=== PATIENT | male | born 1945 | race Caucasian/White ===

== ENCOUNTER 2020-09-18 05:43 | Inpatient (IN) | payer MEDICARE, OTHER ==
[2020-09-18] VITALS (27 sets, daily range): BP systolic 83–110; BP diastolic 41–97
[~2020-09-18] VITALS: Ht 172.7 cm; Wt 86.2 kg
--- NOTE | 2020-09-18 05:46 | NUR ---
MARYJANE 909 FROM HOME FOR C/O WORSENING LLE PAIN AND SWELLING X 4 DAYS PT HAD A BACK SX AT [facility] ON 07/31/20; PT AAOX2-3, DENIES ANY SOB/CP. NOTED SWELLING ON LLE, PT VSS, NOT IN ACUTE DISTRESS, PENDING ER PROVIDER CASANDRA
--- NOTE | 2020-09-18 06:10 | NUR ---
forensic toxicologist at bed side
[2020-09-18 06:12] LABS: BASOPHILS % (AUTO) 0.2 % (0.0-2.0); EOSINOPHILS % (AUTO) 0.1 % (0.0-6.0); HEMATOCRIT 33 % (39-51); HEMOGLOBIN 10.9 g/dL (13.5-17.5); LYMPHOCYTES # (AUTO) 0.9 /CMM (0.8-4.8); LYMPHOCYTES % (AUTO) 5.7 % (20.0-44.0); MEAN CORPUSCULAR HGB CONC 33 g/dl (31.0-36.0); MEAN CORPUSCULAR VOLUME 91 fL (80-96); MONOCYTES # (AUTO) 0.6 /CMM (0.1-1.30); NEUTROPHILS # (AUTO) 14.1 /CMM (1.8-8.9); PLATELET COUNT (AUTO) 204 /CMM (150-450); RED BLOOD CELL COUNT(AUTO) 3.64 MIL/uL (4.5-6.0); WHITE BLOOD COUNT (AUTO) 15.6 K/uL (4.3-11.0)
[2020-09-18 06:27] LABS: B-TYPE NATRIURETIC PEPTIDE 2330 PG/ML (0-125); CALCIUM, SERUM 7.9 mg/dL (8.5-10.1); CARBON DIOXIDE 19 mmol/L (21-32); CHLORIDE 100 mmol/L (98-107); CREATININE 6.6 mg/dL (0.6-1.3); GLUCOSE 168 mg/dL (74-106); SODIUM SERUM 134 mmol/L (136-145)
[2020-09-18 06:28] LABS: POTASSIUM 6.6 mmol/L (3.5-5.1); UREA NITROGEN, BLOOD 170 mg/dL (7-18)
[2020-09-18] MEDS ORDERED: CALCIUM CHLORIDE 1,000 MG/10 ML DISP.SYRIN ONE (06:39)
[2020-09-18] MEDS ORDERED: SODIUM BICARBONATE SYR 50 MEQ/50 ML DISP.SYRIN ONE (06:39)
[2020-09-18] MEDS ORDERED: LORAZEPAM INJ 2 MG/ML VIAL ONE (06:48)
--- NOTE | 2020-09-18 06:57 | NUR ---
pmd dr flor: [phone]
[2020-09-18 06:59] LABS: ALANINE AMINOTRANSFERASE 65 U/L (12-78); ALBUMIN 1.8 g/dL (3.4-5.0); ALKALINE PHOSPHATASE 128 U/L (46-116); ASPARTATE AMINOTRANSFERASE 53 U/L (15-37); BILIRUBIN,TOTAL 0.4 mg/dL (0.2-1.0); CALCIUM, SERUM 7.9 mg/dL (8.5-10.1); CARBON DIOXIDE 15 mmol/L (21-32); CHLORIDE 99 mmol/L (98-107); CREATININE 6.6 mg/dL (0.6-1.3); GLUCOSE 160 mg/dL (74-106); LIPASE 652 U/L (73-393); SODIUM SERUM 134 mmol/L (136-145)
[2020-09-18] MEDS ORDERED: IV NS 0.9% 1,000 ML BAG IV ONE (07:00)
[2020-09-18] MEDS ORDERED: SODIUM BICARBONATE SYR 50 MEQ/50 ML DISP.SYRIN IV ONE (07:00)
[2020-09-18] MEDS ORDERED: LORAZEPAM INJ 2 MG/ML VIAL IV ONE (07:00)
[2020-09-18] MEDS ORDERED: ALBUTEROL FS 2.5 MG/3 ML VIAL.NEB NEB ONE (07:00)
[2020-09-18] MEDS ORDERED: CALCIUM CHLORIDE 1,000 MG/10 ML DISP.SYRIN IV ONE (07:00)
--- NOTE | 2020-09-18 07:00 | NUR ---
SON STATES PT TAKING TAMSULOSIN FOR BPH; BLADDER SCAN DONE PER ER DOC, >999ML. F/C INSERTED
[2020-09-18] MEDS ORDERED: ALBUTEROL FS 2.5 MG/3 ML VIAL.NEB ONE (07:01)
[2020-09-18 07:06] LABS: BILIRUBIN,URINE NEGATIVE (NEGATIVE); BLOOD, URINE TRACE-INTA Ery/uL (NEGATIVE); COLOR,URINE YELLOW (YELLOW); LEUKOCYTE ESTERASE ,URINE LARGE (NEGATIVE); NITRITE, URINE NEGATIVE (NEGATIVE); PROTEIN,URINE TRACE mg/dl (NEGATIVE); UGLUCOSE NEGATIVE (NEGATIVE); UROBILINOGEN,URINE 0.2 EU/dL (0.2)
[2020-09-18] MEDS ORDERED: MORPHINE SULFATE INJ 2 MG/ML DISP.SYRIN ONE (07:07)
[2020-09-18 07:10] LABS: POTASSIUM 6.5 mmol/L (3.5-5.1); UREA NITROGEN, BLOOD 164 mg/dL (7-18)
[2020-09-18 07:14] LABS: BACTERIA,URINE Many /HPF (None Seen); SQUAMOUS EPITHELIAL CELL,UR Few /HPF (None Seen); WBC,URINE TOO NUMEROUS TO COUN /HPF (0-3)
[2020-09-18] MEDS ORDERED: CIPR500T5 PO (07:23)
[2020-09-18] MEDS ORDERED: ENOX60DI8 SQ (07:23)
[2020-09-18] MEDS ORDERED: CYCL100C23 PO (07:23)
[2020-09-18] MEDS ORDERED: TAMS-12 PO (07:23)
[2020-09-18] MEDS ORDERED: MIRT15TA7 PO (07:23)
[2020-09-18] MEDS ORDERED: GABA300C PO (07:23)
[2020-09-18] MEDS ORDERED: ATEN100T PO (07:23)
[2020-09-18] MEDS ORDERED: CEFTRIAXONE 1GM BAG (ER ONLY) 100 ML IV ONE (07:24)
[2020-09-18] MEDS ORDERED: ACETAMINOPHEN 325 MG TABLET PO PRN (07:30)
[2020-09-18] MEDS ORDERED: LIDOCAINE 2% JEL UROJET 10 ML MM ONE (07:30)
[2020-09-18] MEDS ORDERED: ONDANSETRON HCL/PF 4 MG/2 ML VIAL IVP PRN (07:30)
[2020-09-18] MEDS ORDERED: CEFTRIAXONE 1 G in IV D5W 50 ML IV ONE ×4 (07:30)
[2020-09-18] MEDS ORDERED: MORPHINE SULFATE INJ 2 MG/ML DISP.SYRIN IV ONE (07:30)
[2020-09-18] MEDS ORDERED: MAG HYDROX/AL HYDROX/SIMETH 30 ML UDC PO PRN (07:30)
[2020-09-18] MEDS ORDERED: Z GUARD REMEDY 2 OZ OINT TP PRN (07:30)
[2020-09-18] MEDS ORDERED: MAGNESIUM HYDROXIDE 30 ML UDC PO PRN (07:30)
[2020-09-18] MEDS ORDERED: ENOXAPARIN SODIUM 60 MG/0.6 ML DISP.SYRIN SQ ONE (07:39)
--- NOTE | 2020-09-18 07:48 | NUR ---
PER DR. TEN DOBSON TO CANCEL LOVENOX SINCE DR. HERNANDEZ ORDERED HEPARIN FOR INPATIENT.
--- NOTE | 2020-09-18 07:50 | NUR ---
BED 253 ICU
--- NOTE | 2020-09-18 07:57 | NUR ---
REPORT GIVEN TO PRADEEP DELUCA.
[2020-09-18] MEDS ORDERED: DEXTROSE 50%-WATER 50 ML DISP.SYRIN IV PRN (08:00)
[2020-09-18] MEDS ORDERED: ENOXAPARIN SODIUM 40 MG/0.4 ML DISP.SYRIN SQ ONE (08:00)
[2020-09-18 08:12] LABS: BILIRUBIN,URINE Negative (NEGATIVE); BLOOD, URINE Small Ery/uL (NEGATIVE); COLOR,URINE LIGHT YELLOW (YELLOW); LEUKOCYTE ESTERASE ,URINE Large (NEGATIVE); NITRITE, URINE Negative (NEGATIVE); PROTEIN,URINE 100 mg/dl (NEGATIVE); UGLUCOSE Negative (NEGATIVE); UROBILINOGEN,URINE 0.2 EU/dL (0.2)
[2020-09-18 08:17] LABS: BACTERIA,URINE Moderate /HPF (None Seen); WBC,URINE TOO NUMEROUS TO COUN /HPF (0-3)
[2020-09-18 08:18] LABS: SQUAMOUS EPITHELIAL CELL,UR Few /HPF (None Seen)
[2020-09-18 08:55] LABS: ALANINE AMINOTRANSFERASE 55 U/L (12-78); ALBUMIN 1.7 g/dL (3.4-5.0); ALKALINE PHOSPHATASE 120 U/L (46-116); ASPARTATE AMINOTRANSFERASE 47 U/L (15-37); BILIRUBIN,DIRECT 0.2 mg/dL (0.0-0.2); BILIRUBIN,TOTAL 0.4 mg/dL (0.2-1.0); TOTAL PROTEIN, SERUM 7.7 g/dL (6.4-8.2)
[2020-09-18] MEDS ORDERED: PANTOPRAZOLE 40 MG VIAL IV SCH (09:00)
[2020-09-18] MEDS ORDERED: HEPARIN SODIUM, PORCINE 5000 UNITS/1 ML VIAL SQ SCH (09:00)
--- NOTE | 2020-09-18 09:07 | NUR ---
PATIENT TRANSFERRED TO ICU 253 VIA ACLS PROTOCOL. IN STABLE CONDITION. ENDORSED TO PRADEEP DELUCA.
--- NOTE | 2020-09-18 09:07 | NUR ---
ICU/RN: RECEIVED PT FROM ER. PT ALERT, AWAKE, FOLLOWS COMMANDS. ON ROOM AIR, NO ACUTE DISTRESS NOTED. SINUS ON TELE. LEFT LOWER PITTING EDEMA NOTED, POSITIVE FOR MULTIPLE DVTS. HEPARIN DRIP ORDERED, WAITING FOR ARRIVAL FROM PHARMACY. PT NOTED TO HAVE URINARY RETENTION, ARCE INSERTED IN ER, PURULENT OUTPUT NOTED. ALL NEEDS WILL BE ATTENDED TO, SAFETY MEASURES TAKEN,BED IN LOW POSITION, SIDE RAILS UP, CALL LIGHT WITHIN REACH.
[2020-09-18 09:10] LABS: CALCIUM, SERUM 8.6 mg/dL (8.5-10.1); CARBON DIOXIDE 14 mmol/L (21-32); CHLORIDE 98 mmol/L (98-107); CREATININE 6.4 mg/dL (0.6-1.3); GLUCOSE 137 mg/dL (74-106); SODIUM SERUM 125 mmol/L (136-145)
[2020-09-18 09:21] LABS: POTASSIUM 6.3 mmol/L (3.5-5.1); UREA NITROGEN, BLOOD 161 mg/dL (7-18)
[2020-09-18] MEDS: IV NS 0.9% 1,000 ML IV PRN ×2 (09:43→20:00)
[2020-09-18] MEDS ORDERED: HEPARIN SODIUM, PORCINE 5000 UNITS/1 ML VIAL IV ONE ×2 (10:00→18:30)
[2020-09-18] MEDS: HEPARIN INFUSION/D5W 500 ML IV PRN (10:04)
[2020-09-18] MEDS ORDERED: SODIUM POLYSTYRENE SULFONATE 15 G/60 ML BOTTLE PO ONE (10:30)
[2020-09-18] MEDS: BLOOD SUGAR DIAGNOSTIC 1 EACH STRIP IN SCH ×2 (12:44→17:32)
[2020-09-18] MEDS: INSULIN REGULAR, HUMAN 100 UNIT/ML 3 ML VIAL SQ PRN ×2 (12:45→18:04)
[2020-09-18] MEDS: PIPERACILLIN /TAZOBACTAM 2.25 G in IV D5W 50 ML IV SCH ×2 (12:46→21:03)
--- NOTE | 2020-09-18 15:00 | NUR ---
ICU/RN: PT SEEN AND ASSESSED BY , AND MAGY. NEW ORDERS RECEIVED, WILL FOLLOW THROUGH
[2020-09-18 16:04] LABS: ALANINE AMINOTRANSFERASE 48 U/L (12-78); ALBUMIN 1.6 g/dL (3.4-5.0); ALKALINE PHOSPHATASE 113 U/L (46-116); ASPARTATE AMINOTRANSFERASE 35 U/L (15-37); BILIRUBIN,TOTAL 0.3 mg/dL (0.2-1.0); CARBON DIOXIDE 15 mmol/L (21-32); CHLORIDE 104 mmol/L (98-107); GLUCOSE 163 mg/dL (74-106); MAGNESIUM 2.9 mg/dL (1.8-2.4); POTASSIUM 5.9 mmol/L (3.5-5.1); SODIUM SERUM 139 mmol/L (136-145); TOTAL PROTEIN, SERUM 7.5 g/dL (6.4-8.2)
[2020-09-18 16:13] LABS: UREA NITROGEN, BLOOD 151 mg/dL (7-18)
--- NOTE | 2020-09-18 18:32 | NUR ---
ICU/RN: PTT 43, BOLUS GIVEN PER PROTOCOL, INCREASED BY 250 UNITS/KG, NOW INFUSING AT 1700 UNITS
[2020-09-18 18:54] LABS: CALCIUM, SERUM 7.3 mg/dL (8.5-10.1); CARBON DIOXIDE 19 mmol/L (21-32); CHLORIDE 106 mmol/L (98-107); CREATININE 5.6 mg/dL (0.6-1.3); GLUCOSE 166 mg/dL (74-106); POTASSIUM 5.3 mmol/L (3.5-5.1); SODIUM SERUM 140 mmol/L (136-145)
--- NOTE | 2020-09-18 19:00 | NUR ---
ICU/RN: ENDING NOTES,AM REPORT ENDORSED TO NIGHT NURSE FOR MARIXA. PT ALERT, AWAKE, FOLLOWS COMMANDS. ON ROOM AIR, NO ACUTE DISTRESS NOTED. PT ON HEPARIN DRIP PER PROTOCOL, FOR LEFT LEG DVTS. NO S/S OF BLEEDING NOTED, ADJUSTED PER PROTOCOL. ALL NEEDS ATTENDED TO, SAFETY MEASURES TAKEN, BED IN LOW POSITION, SIDE RAILS UP. IVF INFUSING ORDERED. WILL CONTINUE CARE
[2020-09-18 19:04] LABS: UREA NITROGEN, BLOOD 144 mg/dL (7-18)
--- NOTE | 2020-09-18 19:30 | NUR ---
RN NOTES RECEIVED PATIENT IN BED AOX4. BREATHING NORMAL NO SOB NOTED. RESPIRATION EVEN NON LABORED. DENIES ANY PAIN OR DISCOMFORT. ON RA SATURATING WELL. TELE MONITOR SHOWS SR IN 70. IV SITES LAC 20G AND RT HAND 20G INTACT PATENT FLUSHES WELL. CONTINUES ON HEPARIN DRIP NO S/S OF BLEEDING NOTED.TOLERATING WELL. F/C INTACT CLEAR URINE DARNING WELL TO GRAVITY. SAFETY MEASURES IN PLACE, BED IN LOW AND LOCKED POSITION SIDE RAILS UP, CALL LIGHT WITHIN REACH. WILL CONT TO MONITOR.
--- NOTE | 2020-09-18 22:00 | NUR ---
REPOSITION FOR COMFORT. WARM BLANKET PROVIDED. ALL SAFETY MEASURES IN PLACE. WILL CONT TO MONITOR.
[2020-09-18] MEDS: NOREPINEPHRINE 8 MG in IV NS 0.9% 242 ML IV PRN (22:04)
[2020-09-19] VITALS (95 sets, daily range): BP systolic 53–164; BP diastolic 16–138
--- NOTE | 2020-09-19 | NUR ---
MOUTH CARE PROVIDED, TOLERATED WELL.REPOSITION FOR COMFORT. ALL SAFETY MAINTAINED. WILL CONT TO MONITOR.
[2020-09-19] MEDS: BLOOD SUGAR DIAGNOSTIC 1 EACH STRIP IN SCH ×5 (00:13→22:22)
[2020-09-19] MEDS: INSULIN REGULAR, HUMAN 100 UNIT/ML 3 ML VIAL SQ PRN ×4 (00:31→22:29)
[2020-09-19] MEDS: HEPARIN INFUSION/D5W 500 ML IV PRN ×2 (01:56→17:18)
[2020-09-19] MEDS: MORPHINE SULFATE INJ 2 MG/ML DISP.SYRIN IV PRN ×3 (03:34→20:10)
--- NOTE | 2020-09-19 03:34 | NUR ---
PRN MORPHINE GIVEN OREDERED FOR LEFT LEG PAIN 07/03. WILL CON TO MONITOR.
--- NOTE | 2020-09-19 04:04 | NUR ---
MORPHINE WAS EFFECTIVE PATIENT RESTING COMFORTABLE PAIN LOWER TO 3/10. WILL CONT TO MONITOR.
[2020-09-19 04:26] LABS: EOSINOPHILS % (AUTO) 0.2 % (0.0-6.0); HEMATOCRIT 35 % (39-51); HEMOGLOBIN 11.2 g/dL (13.5-17.5); LYMPHOCYTES # (AUTO) 0.5 /CMM (0.8-4.8); LYMPHOCYTES % (AUTO) 5.1 % (20.0-44.0); MEAN CORPUSCULAR HGB CONC 33 g/dl (31.0-36.0); MEAN CORPUSCULAR VOLUME 91 fL (80-96); MONOCYTES # (AUTO) 0.2 /CMM (0.1-1.30); NEUTROPHILS # (AUTO) 8.9 /CMM (1.8-8.9); NEUTROPHILS % (AUTO) 92.7 % (43.0-81.0); PLATELET COUNT (AUTO) 203 /CMM (150-450); RED BLOOD CELL COUNT(AUTO) 3.79 MIL/uL (4.5-6.0); WHITE BLOOD COUNT (AUTO) 9.6 K/uL (4.3-11.0)
[2020-09-19 04:42] LABS: CREATININE, URINE 43.5 MG/DL (30.0-125.0); URINE TOTAL PROTEIN 97.7 mg/dL (0-11.9)
[2020-09-19 04:46] LABS: COLOR,URINE YELLOW (YELLOW); PROTEIN,URINE TRACE mg/dl (NEGATIVE); UGLUCOSE NEGATIVE (NEGATIVE)
[2020-09-19 04:47] LABS: BILIRUBIN,URINE NEGATIVE (NEGATIVE); BLOOD, URINE 3+ Ery/uL (NEGATIVE); LEUKOCYTE ESTERASE ,URINE LARGE (NEGATIVE); NITRITE, URINE POSITIVE (NEGATIVE); UROBILINOGEN,URINE 0.2 EU/dL (0.2)
[2020-09-19 04:47] LABS: CHOLESTEROL 87 mg/dL (<200); LDL 44 mg/dL (0-99); TRIGLYCERIDES 169 mg/dL (30-150)
[2020-09-19 04:50] LABS: BACTERIA,URINE 4+ /HPF (None Seen); RBC,URINE TOO NUMEROUS TO COUN /HPF (0-2); SQUAMOUS EPITHELIAL CELL,UR None Seen /HPF (None Seen); WBC,URINE TOO NUMEROUS TO COUN /HPF (0-3)
[2020-09-19 04:56] LABS: CALCIUM, SERUM 7.9 mg/dL (8.5-10.1); CARBON DIOXIDE 19 mmol/L (21-32); CHLORIDE 108 mmol/L (98-107); CREATININE 5.3 mg/dL (0.6-1.3); GLUCOSE 161 mg/dL (74-106); MAGNESIUM 2.6 mg/dL (1.8-2.4); POTASSIUM 5.4 mmol/L (3.5-5.1); SODIUM SERUM 146 mmol/L (136-145)
[2020-09-19 04:59] LABS: PHOSPHORUS 10.1 mg/dL (2.5-4.9); UREA NITROGEN, BLOOD 140 mg/dL (7-18)
[2020-09-19] MEDS: PIPERACILLIN /TAZOBACTAM 2.25 G in IV D5W 50 ML IV SCH ×3 (05:00→20:59)
--- NOTE | 2020-09-19 05:00 | NUR ---
BED BATH GIVEN PATIENT TOLERATED WELL. KEPT CLEAN DRY AND COMFORTABLE. SAFETY MAINTAINED. WILL CONT TO MONITOR.
[2020-09-19 05:03] LABS: HDL CHOLESTEROL 11 mg/dL (40-60)
[2020-09-19 05:22] LABS: LIPASE 2837 U/L (73-393)
[2020-09-19 05:23] LABS: EOSINOPHIL,URINE None Seen
[2020-09-19] MEDS: NOREPINEPHRINE 8 MG in IV NS 0.9% 242 ML IV PRN ×3 (05:36→15:40)
--- NOTE | 2020-09-19 06:00 | NUR ---
BLOOD SUGAR 130, NO COVERAGE NOTED PER SLIDING SCALE.
[2020-09-19] MEDS ORDERED: HEPARIN SODIUM, PORCINE 5000 UNITS/1 ML VIAL IV ONE (07:00)
--- NOTE | 2020-09-19 07:04 | NUR ---
PTT 39.8, BOLUS GIVEN PER PROTOCOL, INCREASED HEPARIN BY 250/UNITS/KG. CURRENTLY INFUSING AT 1850 UNITS.
[2020-09-19] MEDS: IV NS 0.9% 1,000 ML IV PRN ×2 (07:13→13:40)
--- NOTE | 2020-09-19 07:25 | NUR ---
RN NOTES PATIENT RESTED WELL. DURING SHIFT. ROUTINE MEDICATIONS WERE GIVEN ALONG WITH PRN TOLERATED WELL. IV SITE INTACT PATENT FLUSHES WELL. LEVO IS RUNNING AT 0.3MCG/KG/MIN AND HEPARIN RUNNING AT 1850UNITS ON LEFT AC. NS 100ML RUNNING ON RT HAND. NO S/S OF DISTRESS NOTED. KEPT CLEAN DRY AND COMFORTABLE. SAFETY MEASURES IN PLACE. ENDORSE PATIENT TO AM NURSE FOR MARIXA.
--- NOTE | 2020-09-19 07:45 | NUR ---
ICU/RN: INITIAL NOTES,AM RECEIVED PT ALERT, AWAKE, FOLLOWING COMMANDS. PT ON ROOM AIR, NO ACUTE DISTRESS NOTED. SINUS ON TELE. ARCE CATH IN PLACE, DRAINING YELLOW, CLOUDY URINE. PT PENDNIG FOR PICC LINE INSERTION, LEVO INFUSING FOR BP SUPPORT. HEPARIN INFUSING 1850 UNITS/HR CHECKED WITH ANOTHER RN. WILL FOLLOW PROTOCOL. LEFT LEG SWELLING NOTED, PULSES PRESENT AND PALPABLE, WEAK ON LEFT SIDE. ALL NEEDS WILL BE ATTENDED TO, SAFETY MEASURES TAKEN, BED IN LOW POSITION, SIDE RAILS UP, CALL LIGHT WITHIN REACH. WILL CONTINUE CARE.
[2020-09-19] MEDS: FAMOTIDINE/PF INJ 20 MG/2 ML VIAL IV SCH ×2 (08:42→20:09)
--- NOTE | 2020-09-19 10:30 | NUR ---
ICU/RN: RECEIVED CALL FROM BRENDA HIGHTOWER, CORRECTING A REPORT THAT WAS RESULTED OVER NIGHT. PT'S BLOOD CX IS SHOWING GRAM NEGATIVE RODS, INSTEAD OF GRAM POSITIVE WHICH WAS REPORTED OVER NIGHT. JELENA BHATTI NOTIFIED. NO NEW ORDERS.
[2020-09-19] MEDS ORDERED: DEXTROSE 50%-WATER 50 ML DISP.SYRIN IV PRN (12:00)
--- NOTE | 2020-09-19 12:00 | NUR ---
ICU/RN: DR.TIM LIPSCOMB AT BEDSIDE FOR PICC LINE INSERTION. CHEST XRAY DONE. OK TO USE. PICC CONSENT IN CHART.
--- NOTE | 2020-09-19 14:23 | NUR ---
ICU/RN: PTT 103.9, HEPARIN DRIP STOPPED PER PROTOCOL.
--- NOTE | 2020-09-19 15:23 | NUR ---
ICU/RN: PER PROTOCOL HEPARIN DRIP RESUMED 250UNITS LESS, CURRENTLY RESTARED AT 1600UNITS/HR. WILL RECHECK PTT IN 6 HOURS.
--- NOTE | 2020-09-19 18:56 | NUR ---
ICU/RN ENDING NOTES,AM REPORT WILL BE ENDORSED TO NIGHT NUE FOR MARIXA. PT ALERT, AWAKE, ORIENTED, FOLLOWS ALL COMMANDS. PT ROOM AIR, NO DISTRESS NOTED. NORAML SINUS ON TELE. LEFT UPPER ARM PICC LINE IN PLACE, PATENT AND INTACT, NO S/S OF INFECTION OR INFILTRATION NOTED. HEPARIN INFUSING AT 1600UNITS/HR. APPT SCHEDULED FOR 2129. IVF AT 125ML/HR. LOW DOSE LEVO FOR BP SUPPORT, TITRATING PER PROTOCOL. ARCE DRAINING URINE, MONITOR OUTPUT. ALL NEEDS ATTENDED TO, SAFETY MEASURES TAKEN, BED IN LOW POSITION, SIDE RAILS UP, CALL LIGHT WITHIN REACH. WILL CONTINUE CARE.
--- NOTE | 2020-09-19 19:30 | NUR ---
RN NOTES PATIENT IS AOX3 ABLE TO FOLLOWS COMMANDS. NO S/S OF ACUTE DISTRESS NOTED. RESPIRATION EVEN NON LABORED. ON RA SATURATING 99% AT THIS TIME. TELE MONITOR SHOWS SR IN 75. RAY PICC LINE IN PLACE, LAC, RT HAND INTACT PATENT FLUSHES WELL. CONTINUES ON HEPARIN/LEVO DRIP TOLERATING WELL. F/C INTACT CLEAR URINE DARNING WELL TO GRAVITY. SAFETY MEASURES IN PLACE, BED IN LOW AND LOCKED POSITION SIDE RAILS UP, CALL LIGHT WITHIN REACH. WILL CONT TO MONITOR FOR MARIXA.
--- NOTE | 2020-09-19 22:15 | NUR ---
@2200- BS 164, 3 UNITS OF REGULAR INSULIN GIVEN PER PROTOCOL. WILL CONT TO MONITOR.
[2020-09-20] VITALS (89 sets, daily range): BP systolic 77–164; BP diastolic 18–106
[2020-09-20] MEDS: NOREPINEPHRINE 8 MG in IV NS 0.9% 242 ML IV PRN ×3 (00:02→22:01)
--- NOTE | 2020-09-20 00:41 | NUR ---
RN NOTES PATIENT IS GETTING AGITATED AND RESTLESS. REDIRECT THE PATIENT THE PATIENT STILL ANXIOUS. MD DUNBAR NOTIFIED NEW ORDER RECEIVED TO GIVE ATIVAN 1MG PRN [id number]. ORDER NOTED AND CARRIED OUT.
[2020-09-20] MEDS: LORAZEPAM INJ 2 MG/ML VIAL IV PRN ×2 (00:49→06:44)
--- NOTE | 2020-09-20 02:00 | NUR ---
REPOSITION FOR SAFETY. KEPT CLEAN DRY AND COMFORTABLE. WILL CONT TO MONITOR.
[2020-09-20] MEDS: IV NS 0.9% 1,000 ML IV PRN ×3 (03:17→19:09)
--- NOTE | 2020-09-20 04:00 | NUR ---
MOUTH CARE PROVIDED. KEPT CLEAN AND COMFORTABLE.
[2020-09-20] MEDS: PIPERACILLIN /TAZOBACTAM 2.25 G in IV D5W 50 ML IV SCH ×3 (05:04→21:00)
--- NOTE | 2020-09-20 05:59 | NUR ---
PTT 53.4 NO CHANGES IN INFUSION PER PROTOCOL.
--- NOTE | 2020-09-20 07:00 | NUR ---
RN NOTES RECEIVED PATIENT IN BED RESTING COMFORTABLY IN MODERATE HIGH BACK REST. A/O X1. NOTED WITH BILATERAL SOFT WRIST RESTRAIN IN PLACE FOR SAFETY. CIRCULATION CHECKED, NO S/S OF ACUTE DISTRESS NOTED AT THIS TIME. ON LEVO, HEPARIN, IVF ON RAY PICC LINE . F/C INTACT CLEAR URINE DRAINING WELL TO GRAVITY. SAFETY MEASURES IN PLACE, BED IN LOW AND LOCKED POSITION SIDE RAILS UP, CALL LIGHT WITHIN REACH. WILL CONTINUE TO MONITOR.
--- NOTE | 2020-09-20 07:04 | NUR ---
RN NOTES PATIENT WAS AGITATED AND RESTLESS DURING SHIFT. PRN ATIVAN GIVEN ORDERED TOLERATED WELL. BILATERAL SOFT WRIST RESTRAIN IN PLACE FOR SAFETY. NO S/S OF ACUTE DISTRESS NOTED. CONTINUES WITH LEVO, HEPARIN, IVF ON RAY PICC LINE running well. F/C INTACT CLEAR URINE DARNING WELL TO GRAVITY. SAFETY MEASURES IN PLACE, BED IN LOW AND LOCKED POSITION SIDE RAILS UP, CALL LIGHT WITHIN REACH. WILL ENDORSE TO AM NURSE FOR MARIXA.
[2020-09-20] MEDS: BLOOD SUGAR DIAGNOSTIC 1 EACH STRIP IN SCH ×4 (07:08→22:28)
[2020-09-20] MEDS: INSULIN REGULAR, HUMAN 100 UNIT/ML 3 ML VIAL SQ PRN ×4 (07:09→22:19)
[2020-09-20] MEDS: FAMOTIDINE/PF INJ 20 MG/2 ML VIAL IV SCH (08:31)
[2020-09-20] MEDS: HEPARIN INFUSION/D5W 500 ML IV PRN (08:34)
[2020-09-20 09:27] LABS: BASOPHILS # (AUTO) 0.1 /CMM (0.0-0.2); BASOPHILS % (AUTO) 0.8 % (0.0-2.0); EOSINOPHILS % (AUTO) 0.2 % (0.0-6.0); HEMATOCRIT 29 % (39-51); HEMOGLOBIN 9.4 g/dL (13.5-17.5); LYMPHOCYTES # (AUTO) 0.8 /CMM (0.8-4.8); LYMPHOCYTES % (AUTO) 4.6 % (20.0-44.0); MEAN CORPUSCULAR HGB CONC 33 g/dl (31.0-36.0); MEAN CORPUSCULAR VOLUME 92 fL (80-96); MONOCYTES # (AUTO) 0.5 /CMM (0.1-1.30); MONOCYTES % (AUTO) 2.7 % (2.0-12.0); NEUTROPHILS # (AUTO) 16.1 /CMM (1.8-8.9); NEUTROPHILS % (AUTO) 91.7 % (43.0-81.0); PLATELET COUNT (AUTO) 160 /CMM (150-450); RED BLOOD CELL COUNT(AUTO) 3.12 MIL/uL (4.5-6.0); WHITE BLOOD COUNT (AUTO) 17.5 K/uL (4.3-11.0)
[2020-09-20 09:34] LABS: CALCIUM, SERUM 6.6 mg/dL (8.5-10.1); CARBON DIOXIDE 18 mmol/L (21-32); CHLORIDE 113 mmol/L (98-107); CREATININE 3.6 mg/dL (0.6-1.3); GLUCOSE 159 mg/dL (74-106); POTASSIUM 3.5 mmol/L (3.5-5.1); SODIUM SERUM 147 mmol/L (136-145)
[2020-09-20 09:38] LABS: UREA NITROGEN, BLOOD 95 mg/dL (7-18)
[2020-09-20] MEDS: QUETIAPINE FUMARATE 25 MG TABLET PO PRN ×2 (12:43→20:25)
--- NOTE | 2020-09-20 18:23 | NUR ---
RN NOTES PATIENT IN BED RESTING COMFORTABLY IN MODERATE HIGH BACK REST. A/O X1. CONFUSED, STILL WAITING FOR PSYCH CONSULT. NOTED WITH BILATERAL SOFT WRIST RESTRAIN IN PLACE FOR SAFETY. CIRCULATION CHECKED, ON LEVO, HEPARIN, IVF ON RAY PICC LINE . F/C INTACT CLEAR URINE DRAINING WELL TO GRAVITY. SAFETY MEASURES IN PLACE, BED IN LOW AND LOCKED POSITION SIDE RAILS UP, CALL LIGHT WITHIN REACH. WILL ENDORSE TO CHIEF CRUISER NURSE FOR MARIXA.
--- NOTE | 2020-09-20 19:30 | NUR ---
RN NOTES RECEIVED PATIENT RESTING IN BED NO S/S OF ACUTE DISTRESS NOTED. RESPIRATION EVEN NON LABORED. ON RA SATURATING 100% AT THIS TIME. TELE MONITOR SHOWS SR HR IN 85. RAY PICC LINE IN PLACE, INTACT PATENT FLUSHES WELL. CONTINUES ON HEPARIN/LEVO DRIP TOLERATING WELL. BILATERAL SOFT WRIST RESTRAINS IN PLACE. F/C INTACT CLEAR URINE DARNING WELL TO GRAVITY. SAFETY MEASURES IN PLACE, BED IN LOW AND LOCKED POSITION SIDE RAILS UP, CALL LIGHT WITHIN REACH. WILL CONT TO MONITOR FOR MARIXA.
[2020-09-20] MEDS: FAMOTIDINE (20 MG) 20 MG TABLET PO SCH (20:24)
[2020-09-20] MEDS: MORPHINE SULFATE INJ 2 MG/ML DISP.SYRIN IV PRN (20:25)
[2020-09-21] VITALS (92 sets, daily range): BP systolic 72–179; BP diastolic 35–78
[2020-09-21] MEDS: HEPARIN INFUSION/D5W 500 ML IV PRN ×2 (00:06→17:59)
--- NOTE | 2020-09-21 00:30 | NUR ---
REPOSITION FOR SAFETY, MOUTH CARE DONE. KEPT CLEAN DRY AND COMFORTABLE . WILL CONT TO MONITOR.
--- NOTE | 2020-09-21 01:20 | NUR ---
REPOSITION FOR SAFETY. PATIENT IS RESTING WELL. WILL CONT TO MONITOR.
--- NOTE | 2020-09-21 02:00 | NUR ---
PATIENT IS RESTING COMFORTABLE. NO S/S OF DISTRESS NOTED. WILL CONT TO MONITOR.
--- NOTE | 2020-09-21 03:55 | NUR ---
BED BATH GIVEN PATIENT TOLERATED WELL. VITAL SIGNS STABLE CONTINUES WITH DRIPS. KEPT CLEAN DRY AND COMFORTABLE. WILL CONT TO MONITOR.
[2020-09-21 04:18] LABS: BASOPHILS % (AUTO) 0.2 % (0.0-2.0); EOSINOPHILS % (AUTO) 0.9 % (0.0-6.0); HEMATOCRIT 26 % (39-51); HEMOGLOBIN 8.8 g/dL (13.5-17.5); LYMPHOCYTES # (AUTO) 0.8 /CMM (0.8-4.8); LYMPHOCYTES % (AUTO) 6.7 % (20.0-44.0); MEAN CORPUSCULAR HGB CONC 33 g/dl (31.0-36.0); MEAN CORPUSCULAR VOLUME 90 fL (80-96); MONOCYTES # (AUTO) 0.5 /CMM (0.1-1.30); MONOCYTES % (AUTO) 4.4 % (2.0-12.0); NEUTROPHILS # (AUTO) 10.8 /CMM (1.8-8.9); NEUTROPHILS % (AUTO) 87.8 % (43.0-81.0); PLATELET COUNT (AUTO) 122 /CMM (150-450); RED BLOOD CELL COUNT(AUTO) 2.92 MIL/uL (4.5-6.0); WHITE BLOOD COUNT (AUTO) 12.4 K/uL (4.3-11.0)
[2020-09-21 04:34] LABS: CALCIUM, SERUM 6.1 mg/dL (8.5-10.1); CARBON DIOXIDE 20 mmol/L (21-32); CHLORIDE 121 mmol/L (98-107); CREATININE 2.8 mg/dL (0.6-1.3); GLUCOSE 173 mg/dL (74-106); MAGNESIUM 1.8 mg/dL (1.8-2.4); PHOSPHORUS 4.5 mg/dL (2.5-4.9); SODIUM SERUM 154 mmol/L (136-145); UREA NITROGEN, BLOOD 60 mg/dL (7-18)
[2020-09-21] MEDS: IV NS 0.9% 1,000 ML IV PRN (04:38)
[2020-09-21] MEDS: PIPERACILLIN /TAZOBACTAM 2.25 G in IV D5W 50 ML IV SCH (05:25)
[2020-09-21] MEDS ORDERED: NOREPINEPHRINE 8MG/250ML RTU 250 ML IV ONE (05:52)
[2020-09-21] MEDS: NOREPINEPHRINE 8 MG in IV NS 0.9% 242 ML IV PRN ×2 (06:04→17:45)
--- NOTE | 2020-09-21 06:24 | NUR ---
PTT RESULTS-52.7 NO CHANGE, NEXT PTT LEVEL IN AM. WILL CONT TO MONITOR.
--- NOTE | 2020-09-21 07:12 | NUR ---
RN NOTES PATIENT IS CONFUSED AGITATED. PRN SEROQUEL AND MORPHINE GIVEN PAIN AND AGITATION NOTED TO BE EFFECTIVE. PATIENT RESTED WELL DURING SHIFT. CONTINUES WITH LEVO @0.1MCG, HEPARIN @1600, NS IS RUNNING AT 125ML/HR TOLERATING WELL. NO S//S OF BLEEDING NOTED BILATERAL SOFT WRIST RESTRAINS IN PLACE. RELEASE [id number] TO CHECK PULSES AND CIRCULATION. F/C INTACT CLEAR URINE DARNING WELL TO GRAVITY. SAFETY MEASURES IN PLACE, BED IN LOW AND LOCKED POSITION SIDE RAILS UP, CALL LIGHT WITHIN REACH. ENDORSE TO AM NURSE FOR MARIXA.
--- NOTE | 2020-09-21 07:30 | NUR ---
RN OPENING NOTE: RECEIVED PATIENT IN BED THIS MORNING. PATIENT IS ALERT X2. SR IN THE 80S NOTED ON BEDSIDE MONITOR. NO SIGNS OF ACUTE DISTRESS NOTED AT THIS TIME. SATING WELL ON RA. ARCE DRAINING URINE. RAY PICC LINE FLUSHING WELL, C/D/I, NO SIGNS OF COMPLICATIONS NOTED. SAFETY MEASURES IMPLEMENTED, BED IN LOWEST POSITION, LOCKED, SIDE RAILS UP, CALL LIGHT WITHIN REACH. WILL CONTINUE TO MONITOR PATIENT FOR CHANGES.
[2020-09-21] MEDS: BLOOD SUGAR DIAGNOSTIC 1 EACH STRIP IN SCH ×4 (08:06→21:01)
[2020-09-21] MEDS: FAMOTIDINE (20 MG) 20 MG TABLET PO SCH ×2 (08:06→21:00)
[2020-09-21] MEDS: MORPHINE SULFATE INJ 2 MG/ML DISP.SYRIN IV PRN (08:06)
[2020-09-21] MEDS: INSULIN REGULAR, HUMAN 100 UNIT/ML 3 ML VIAL SQ PRN ×2 (08:07→12:36)
--- NOTE | 2020-09-21 10:00 | NUR ---
BLADDER SCAN COMPLETE, PATIENT HAD ONLY 75XC Addendum: 09/21/20 at 1332 by SANTANA SPRINGER RN BLADDER SCAN COMPLETE, PATIENT HAD ONLY 75CC OF RETAINED FLUID
[2020-09-21] MEDS ORDERED: PIPERACILLIN /TAZOBACTAM 2.25 G in IV D5W 50 ML IV SCH (12:00)
[2020-09-21] MEDS ORDERED: POTASSIUM CHLORIDE 20 MEQ TAB.PRT.SR PO ONE (12:00)
[2020-09-21] MEDS: IV 1/2NS 1000 ML 1,000 ML IV SCH ×2 (12:23→21:00)
[2020-09-21 13:55] LABS: URINE TOTAL PROTEIN 51.4 mg/dL (0-11.9)
[2020-09-21] MEDS: CEFTRIAXONE 2 G in IV D5W 100 ML IV SCH (17:39)
--- NOTE | 2020-09-21 18:53 | NUR ---
RN CLOSING NOTE: PATIENT REMAINS IN BED. NO SIGNS OF ACUTE DISTRESS NOTED AT THIS TIME. SR IN THE 80S NOTED ON BEDSIDE MONITOR. SAFETY MEASURES IMPLEMENTED, BED IN LOWEST POSITION, LOCKED, SIDE RAILS UP, CALL LIGHT WITHIN REACH. WILL ENDORSE TO ONCOMING SHIFT RN FOR CONTINUITY OF CARE.
[2020-09-22] VITALS (24 sets, daily range): BP systolic 88–148; BP diastolic 49–84
[2020-09-22] MEDS: MORPHINE SULFATE INJ 2 MG/ML DISP.SYRIN IV PRN ×3 (01:27→17:23)
[2020-09-22 04:34] LABS: CARBON DIOXIDE 22 mmol/L (21-32); CHLORIDE 120 mmol/L (98-107); CREATININE 2.3 mg/dL (0.6-1.3); GLUCOSE 126 mg/dL (74-106); POTASSIUM 3.7 mmol/L (3.5-5.1); SODIUM SERUM 153 mmol/L (136-145); UREA NITROGEN, BLOOD 40 mg/dL (7-18)
[2020-09-22 04:38] LABS: BASOPHILS % (AUTO) 0.2 % (0.0-2.0); HEMATOCRIT 26 % (39-51); HEMOGLOBIN 8.4 g/dL (13.5-17.5); LYMPHOCYTES # (AUTO) 0.9 /CMM (0.8-4.8); LYMPHOCYTES % (AUTO) 7.6 % (20.0-44.0); MEAN CORPUSCULAR HGB CONC 33 g/dl (31.0-36.0); MEAN CORPUSCULAR VOLUME 90 fL (80-96); MONOCYTES # (AUTO) 0.5 /CMM (0.1-1.30); MONOCYTES % (AUTO) 4.7 % (2.0-12.0); NEUTROPHILS # (AUTO) 9.5 /CMM (1.8-8.9); NEUTROPHILS % (AUTO) 85.5 % (43.0-81.0); PLATELET COUNT (AUTO) 128 /CMM (150-450); RED BLOOD CELL COUNT(AUTO) 2.87 MIL/uL (4.5-6.0); WHITE BLOOD COUNT (AUTO) 11.1 K/uL (4.3-11.0)
[2020-09-22] MEDS: IV 1/2NS 1000 ML 1,000 ML IV SCH ×2 (04:58→12:20)
--- NOTE | 2020-09-22 07:30 | NUR ---
RN OPENING NOTE: RECEIVED PATIENT IN BED THIS MORNING. PATIENT IS ALERT X2. SR IN THE 90S NOTED ON BEDSIDE MONITOR. NO SIGNS OF ACUTE DISTRESS NOTED AT THIS TIME. SATING WELL ON RA. ARCE DRAINING URINE. RAY PICC LINE FLUSHING WELL, C/D/I, NO SIGNS OF COMPLICATIONS NOTED. SAFETY MEASURES IMPLEMENTED, BED IN LOWEST POSITION, LOCKED, SIDE RAILS UP, CALL LIGHT WITHIN REACH. WILL CONTINUE TO MONITOR PATIENT FOR CHANGES.
[2020-09-22] MEDS: BLOOD SUGAR DIAGNOSTIC 1 EACH STRIP IN SCH ×4 (07:35→22:00)
--- NOTE | 2020-09-22 08:46 | NUR ---
WOUND CARE CONSULT: PT PRESENTS WITH CLOSED INCISION TO LOWER BACK AND MOISTURE ASSOCIATED OPEN SKIN TO RT BUTTOCK, PRESENT ON ADMISSION. PT ALSO NOTED TO HAVE VERY EDEMATOUS LEFT LOWER LEG (ELEVATED ON PILLOW). RECOMMENDATIONS MADE FOR SKIN PROTECTION. DISCUSSED WITH NURSING STAFF. MD IN AGREEMENT WITH PLAN OF CARE. WILL SEE PRN.
[2020-09-22] MEDS: FAMOTIDINE (20 MG) 20 MG TABLET PO SCH ×2 (08:51→20:24)
[2020-09-22] MEDS: HEPARIN INFUSION/D5W 500 ML IV PRN (10:46)
--- NOTE | 2020-09-22 11:58 | NUR ---
PATIENT TRANSFERRED TO [facility] [id number]. REPORT GIVEN TO SANDRINE HUNTLEY ALONG WITH PATIENT'S CHART AND HEPARIN PROTOCOL SHEET, HEPARIN CONTINUED RUNNING DURING TRANSFER. NO ACUTE DISTRESS NOTED. SAFETY MEASURES IMPLEMENTED, BED IN LOWEST POSITION, LOCKED, SIDE RAILS UP, CALL LIGHT WITHIN REACH.
--- NOTE | 2020-09-22 12:00 | NUR ---
Patient transferred from ICU received report by Magdalena/SANDRINE. Patient on scott cath, piccline on left upper arm, and heparin drip at 1600units/32ml/hr, next ppt will be tomorrow morning at 0500.
--- NOTE | 2020-09-22 13:34 | NUR ---
TEXTILES SALES REPRESENTATIVE NOTES RECEIVED REPORT FROM SANDRINE GUY. PATIENT RECEIVED AWAKE IN BED A/O X3. ABLE TO MAKE NEEDS KNOWN. ON ROOM AIR, BREATHING EVEN AND UNLABORED. PT ON B/L SOFT WRIST RESTRAINTS, SKIN IS INTACT WITH GOOD CIRCULATION NOTED. TELEMONITORING SHOWS SR WITH HR ON 80''S, NO C/O OF CARDIAC DISTRESS VOICED. ARCE DRAINING URINE. RAY PICC LINE IN PLACE WITH HEPARIN DRIP INFUSING AT 1600U/HR (32ML/HR). SAFETY MEASURES MAINTAINED: , BED IN LOWEST POSITION, LOCKED, SIDE RAILS UP X2, CALL LIGHT WITHIN REACH. WILL CONTINUE TO MONITOR PATIENT FOR ANY CHANGES.
[2020-09-22] MEDS: IV 1/2NS 1000 ML 1,000 ML IV PRN (17:14)
--- NOTE | 2020-09-22 17:25 | NUR ---
RN NOTES PT C/O ACHING AND TIGHTENING PAIN ON LEFT LOWER BACK. PRN MORPHINE SULFATE 2MG/ML IVP ADMINISTERED AT 1723. WILL CONTINUE TO MONITOR AND REASSESS PT.
[2020-09-22] MEDS: INSULIN REGULAR, HUMAN 100 UNIT/ML 3 ML VIAL SQ PRN (17:35)
[2020-09-22] MEDS: CEFTRIAXONE 2 G in IV D5W 100 ML IV SCH (18:10)
--- NOTE | 2020-09-22 18:41 | NUR ---
STRIP WINDER CLOSING NOTES PATIENT IN BED AWAKE AND RESTING AT SEMI-PAIGE'S POSITION AT THIS TIME. A/O X3. ABLE TO MAKE NEEDS KNOWN. ON ROOM AIR, BREATHING EVEN AND UNLABORED. PT IS CALM, COOPERATIVE AND FOLLOWS COMMANDS, B/L SOFT WRIST RESTRAINTS OFF AT THIS TIME. RAY PICC LINE IN PLACE WITH HEPARIN DRIP INFUSING AT 1600U/HR (32ML/HR), NO S/S OF BLEEDING OR ACTIVE BLEEDING NOTED. TELE-MONITORING SHOWS SR WITH HR ON 70'S, NO C/O OF CARDIAC DISTRESS VOICED. ARCE DRAINING CLEAR YELLOW URINE OUTPUT VIA GRAVITY. ARCE CARE DONE. SAFETY MEASURES MAINTAINED: BED IN LOWEST POSITION, LOCKED, SIDE RAILS UP X2, CALL LIGHT WITHIN REACH. ALL NEEDS AND CARE ATTENDED WELL. WILL ENDORSE TO PACKAGE REINSPECTOR NURSE FOR MARIXA.
--- NOTE | 2020-09-22 20:00 | NUR ---
TELE/RN OPENING NOTE Patient awake in bed, A/O x3. Tele monitor reading sinus rhythm. Breathing even, clear, unlabored, no signs of acute distress or SOB. No JVD. Tongue midline, no tracheal deviation. CRP <3seconds. Skin warm, pink, dry, appropriate for ethnicity. Stg 2 ulcer noted on sacrum. Dressing clean and intact. Brachial and pedal pulse 2+, symmetrical. PICC line noted on RAY, patent and intact. IV NS running at 75 ml/hr, no redness. Heparin drip infusing at 1600 units/hr (32ml/hr), no signs of bleeding. Vizcarra catheter in place, urine output clear, yellow. Bed in low position, wheels locked, side rails up x2, call light within reach.
--- NOTE | 2020-09-22 22:41 | NUR ---
TELE/RN NOTE Patient refused glucose check at this time. Patient states he did not want to be bothered. Risks and benefits explained to patient. Will continue to monitor.
[2020-09-23] VITALS: BP 128/65
[2020-09-23 02:09] VITALS: BP 128/65
[2020-09-23] MEDS: MORPHINE SULFATE INJ 2 MG/ML DISP.SYRIN IV PRN (05:26)
--- NOTE | 2020-09-23 06:48 | NUR ---
TELE/RN CLOSING NOTE Patient awake in bed, A/O x3. Tele monitor reading sinus rhythm, 70s. Breathing even, clear, unlabored, no signs of acute distress or SOB. Skin warm, pink, dry, appropriate for ethnicity. Stg 2 ulcer noted on sacrum. Dressing clean and intact. PICC line noted on RAY, patent and intact. IV NS running at 75 ml/hr, no redness. Heparin drip infusing at 1600 units/hr (32ml/hr), no signs of bleeding. Vizcarra catheter in place, urine output clear, yellow, 2100 ml. Bed in low position, wheels locked, side rails up x2, call light within reach.
[2020-09-23] MEDS: BLOOD SUGAR DIAGNOSTIC 1 EACH STRIP IN SCH ×4 (06:59→21:12)
[2020-09-23 07:54] LABS: BASOPHILS % (AUTO) 0.4 % (0.0-2.0); EOSINOPHILS % (AUTO) 1.7 % (0.0-6.0); HEMATOCRIT 25 % (39-51); HEMOGLOBIN 8.2 g/dL (13.5-17.5); LYMPHOCYTES # (AUTO) 0.9 /CMM (0.8-4.8); LYMPHOCYTES % (AUTO) 7.9 % (20.0-44.0); MEAN CORPUSCULAR HGB CONC 33 g/dl (31.0-36.0); MEAN CORPUSCULAR VOLUME 90 fL (80-96); MONOCYTES # (AUTO) 0.6 /CMM (0.1-1.30); NEUTROPHILS # (AUTO) 9.4 /CMM (1.8-8.9); PLATELET COUNT (AUTO) 159 /CMM (150-450); RED BLOOD CELL COUNT(AUTO) 2.81 MIL/uL (4.5-6.0); WHITE BLOOD COUNT (AUTO) 11.1 K/uL (4.3-11.0)
--- NOTE | 2020-09-23 07:58 | NUR ---
TRANSITIONAL LIVING SPECIALIST NOTE PATIENT IN BED RESTING COMFORTABLY. PATIENT IN NO ACUTE DISTRESS. NO SOB NOTED. PATIENT BREATHING IS EVEN AND UNLABORED. PATIENT ON CARDIAC MONITORING READING SINUS RHYTHM HR 78. PATIENT BED ALARM IS ON. SAFETY PRECAUTIONS IN PLACE. PATIENT BED IS LOCKED AND IN LOWEST POSITION. CALL LIGHT WITHIN REACH. WILL CONTINUE TO MONITOR.
[2020-09-23 08:00] VITALS: BP 133/67
[2020-09-23 08:35] LABS: CALCIUM, SERUM 6.2 mg/dL (8.5-10.1); CARBON DIOXIDE 18 mmol/L (21-32); CHLORIDE 114 mmol/L (98-107); CREATININE 1.9 mg/dL (0.6-1.3); GLUCOSE 107 mg/dL (74-106); LIPASE 197 U/L (73-393); SODIUM SERUM 148 mmol/L (136-145); UREA NITROGEN, BLOOD 28 mg/dL (7-18)
--- NOTE | 2020-09-23 08:55 | NUR ---
METEOROLOGICAL TECHNICIAN NOTE SPOKE WITH ANTOINE FROM PHARMACY REGARDING HEPARIN DRIP ADJUSTMENT. APTT THIS MORNING WAS 38. ADJUSTED PER HEPARIN DRIP PROTOCOL. PER ANTOINE WENT OVER AND PATIENT TO BE GIVEN 3400 UNITS BOLUS HEPARIN AND ADJUST TO 1750 UNITS/HR. CHARGE NURSE RADHA ARORA.
[2020-09-23] MEDS ORDERED: HEPARIN SODIUM, PORCINE 5000 UNITS/1 ML VIAL IV ONE (09:00)
[2020-09-23] MEDS: FAMOTIDINE (20 MG) 20 MG TABLET PO SCH ×2 (09:31→20:04)
[2020-09-23] MEDS: HEPARIN INFUSION/D5W 500 ML IV PRN (09:33)
--- NOTE | 2020-09-23 09:45 | NUR ---
MANAGER ETL NOTE PATIENT CURRENTLY INFUSING HEPARIN DRIP AT 1750 UNITS/HR. WILL CONTINUE TO MONITOR.
[2020-09-23 12:00] VITALS: BP 121/67
--- NOTE | 2020-09-23 12:27 | NUR ---
ASSEMBLER FLEXIBLE LEADS NOTE PATIENT BLOOD SUGAR IS 102. NO INSULIN COVERAGE NEEDED PER PROTOCOL.
--- NOTE | 2020-09-23 12:50 | NUR ---
MORTGAGE LOAN CLOSER NOTE SPOKE WITH VIVIAN HERNANDEZ. PER VIVIAN PATIENT IS TO STOP HEPARIN INFUSION AND HE WILL REPLACE WITH ELIQUIS. STOPPED HEPARIN INFUSION. PATIENT IN NO ACUTE DISTRESS. WILL CONTINUE TO MONITOR.
[2020-09-23] MEDS: APIXABAN 5 MG TABLET PO SCH ×2 (15:33→21:11)
[2020-09-23 16:00] VITALS: BP 102/64
[2020-09-23] MEDS: CEFTRIAXONE 2 G in IV D5W 100 ML IV SCH (17:03)
--- NOTE | 2020-09-23 17:04 | NUR ---
WATER CONTROL STATION ENGINEER NOTE PATIENT BLOOD SUGAR IS 113. NO INSULIN COVERAGE NEEDED PER PROTOCOL.
[2020-09-23] MEDS: IV 1/2NS 1000 ML 1,000 ML IV PRN (17:10)
--- NOTE | 2020-09-23 18:20 | NUR ---
MORTGAGE SPECIALIST NOTE PATIENT REFUSED DINNER, PREFERRED TO EAT SNACKS OF PUDDING AND JELLO.
--- NOTE | 2020-09-23 18:30 | NUR ---
CABIN OUTFITTER NOTE PATIENT OFF RESTRAINTS, NOTED WITH GOOD CIRCULATION. PATIENT CALM AND COMPLIANT AT THIS TIME.
--- NOTE | 2020-09-23 18:49 | NUR ---
MAINTENANCE REPAIRER NOTE PATIENT IN BED RESTING COMFORTABLY. PATIENT IN NO ACUTE DISTRESS. NO SOB NOTED. PATIENT BREATHING IS EVEN AND UNLABORED. PATIENT ON CARDIAC MONITORING READING SINUS RHYTHM HR 80. PATIENT KEPT CLEAN AND DRY THROUGHOUT SHIFT. EXPLAINED ALL DUE MEDS. PATIENT BED ALARM IS ON. SAFETY PRECAUTIONS IN PLACE. PATIENT BED IS LOCKED AND IN LOWEST POSITION. CALL LIGHT WITHIN REACH. WILL ENDORSE CARE TO PM SHIFT FOR MARIXA.
[2020-09-23] MEDS: POTASSIUM CHLORIDE 20 MEQ TAB.PRT.SR PO SCH ×2 (19:04→19:56)
--- NOTE | 2020-09-23 19:20 | NUR ---
RN OPENING NOTES Received patient resting on bed, no complaints made at this time. NSR on telemonitor. Kept on bed clean, dry and comfortable. Will continue to monitor accordingly.
[2020-09-23 20:00] VITALS: BP 132/58
[2020-09-23] MEDS: TAMSULOSIN 0.4 MG CAP.SR.24H PO SCH (21:11)
[2020-09-24] VITALS: BP 109/56
[2020-09-24 04:00] VITALS: BP 129/69
[2020-09-24] MEDS: BLOOD SUGAR DIAGNOSTIC 1 EACH STRIP IN SCH ×4 (06:32→21:22)
[2020-09-24] MEDS: IV 1/2NS 1000 ML 1,000 ML IV PRN ×2 (06:39→21:39)
--- NOTE | 2020-09-24 06:53 | NUR ---
RN NOTES Pt asleep on bed, no new complaints made. All nursing needs attended, due meds given as ordered. On fall and aspiration precautions, endorsed.
[2020-09-24 06:59] LABS: BASOPHILS % (AUTO) 0.3 % (0.0-2.0); EOSINOPHILS % (AUTO) 2.1 % (0.0-6.0); HEMATOCRIT 24 % (39-51); HEMOGLOBIN 8.1 g/dL (13.5-17.5); LYMPHOCYTES % (AUTO) 10.4 % (20.0-44.0); MEAN CORPUSCULAR HGB CONC 33 g/dl (31.0-36.0); MEAN CORPUSCULAR VOLUME 89 fL (80-96); MONOCYTES # (AUTO) 0.6 /CMM (0.1-1.30); MONOCYTES % (AUTO) 5.9 % (2.0-12.0); NEUTROPHILS # (AUTO) 8.1 /CMM (1.8-8.9); NEUTROPHILS % (AUTO) 81.3 % (43.0-81.0); PLATELET COUNT (AUTO) 165 /CMM (150-450); RED BLOOD CELL COUNT(AUTO) 2.71 MIL/uL (4.5-6.0)
[2020-09-24 07:40] LABS: CALCIUM, SERUM 6.5 mg/dL (8.5-10.1); CARBON DIOXIDE 21 mmol/L (21-32); CHLORIDE 115 mmol/L (98-107); CREATININE 1.6 mg/dL (0.6-1.3); GLUCOSE 106 mg/dL (74-106); POTASSIUM 3.6 mmol/L (3.5-5.1); SODIUM SERUM 145 mmol/L (136-145); UREA NITROGEN, BLOOD 23 mg/dL (7-18)
[2020-09-24 08:00] VITALS: BP 101/66
--- NOTE | 2020-09-24 08:35 | NUR ---
ms rn received on bed, awake,alert,oriented x3,not in any form of distress, respirations even and unlabored,no sob noted,lungs are diminish,abdomen soft,positive bowel sounds,denies pain at this time,will monitor patient's condition,denies pain at this time,all needs attended.
--- NOTE | 2020-09-24 08:45 | NUR ---
ms lovett was seen by danny w/ orders made and carried out.
--- NOTE | 2020-09-24 09:30 | NUR ---
ms bony breakfast serve,due meds given,tolerated well.
[2020-09-24] MEDS: FAMOTIDINE (20 MG) 20 MG TABLET PO SCH ×2 (10:03→21:20)
[2020-09-24] MEDS: APIXABAN 5 MG TABLET PO SCH ×2 (10:06→21:22)
--- NOTE | 2020-09-24 12:00 | NUR ---
rn blood sugar-100- no coverage noted.
[2020-09-24] MEDS: CEFTRIAXONE 2 G in IV D5W 100 ML IV SCH (17:06)
--- NOTE | 2020-09-24 17:25 | NUR ---
ms lovett blood sugar-92-no coverage given.
--- NOTE | 2020-09-24 17:35 | NUR ---
ms rn on bed, no distress noted, son was updated re,patient's plan of care.
[2020-09-24] MEDS ORDERED: LEVOFLOXACIN (250MG) 250 MG TABLET PO SCH (19:00)
[2020-09-24 20:00] VITALS: BP 150/70
[2020-09-24] MEDS: TAMSULOSIN 0.4 MG CAP.SR.24H PO SCH (21:20)
[2020-09-24] MEDS: MORPHINE SULFATE INJ 2 MG/ML DISP.SYRIN IV PRN (22:48)
[2020-09-24] MEDS: QUETIAPINE FUMARATE 25 MG TABLET PO PRN (22:48)
--- NOTE | 2020-09-25 06:29 | NUR ---
RN CLOSING NOTES Pt asleep on bed, no new complaints made. Tele monitor was D/C'd as ordered. No new complaints made. Medicated for pain, noted effective. On fall and aspiration precautions. Endorsed.
--- NOTE | 2020-09-25 06:43 | NUR ---
RN NOTES - ADDENDUM Pt refused blood sugar check at this time. Per patient, to check his blood sugar later.
[2020-09-25 07:28] LABS: BASOPHILS % (AUTO) 0.4 % (0.0-2.0); EOSINOPHILS % (AUTO) 2.6 % (0.0-6.0); HEMATOCRIT 23 % (39-51); HEMOGLOBIN 7.5 g/dL (13.5-17.5); MEAN CORPUSCULAR HGB CONC 34 g/dl (31.0-36.0); MEAN CORPUSCULAR VOLUME 88 fL (80-96); MONOCYTES # (AUTO) 0.4 /CMM (0.1-1.30); MONOCYTES % (AUTO) 5.9 % (2.0-12.0); NEUTROPHILS # (AUTO) 5.7 /CMM (1.8-8.9); NEUTROPHILS % (AUTO) 78.1 % (43.0-81.0); PLATELET COUNT (AUTO) 164 /CMM (150-450); RED BLOOD CELL COUNT(AUTO) 2.54 MIL/uL (4.5-6.0); WHITE BLOOD COUNT (AUTO) 7.3 K/uL (4.3-11.0)
[2020-09-25] MEDS: BLOOD SUGAR DIAGNOSTIC 1 EACH STRIP IN SCH ×2 (07:30→12:23)
[2020-09-25 07:41] LABS: CALCIUM, SERUM 6.6 mg/dL (8.5-10.1); CARBON DIOXIDE 20 mmol/L (21-32); CHLORIDE 112 mmol/L (98-107); CREATININE 1.5 mg/dL (0.6-1.3); GLUCOSE 88 mg/dL (74-106); POTASSIUM 3.2 mmol/L (3.5-5.1); SODIUM SERUM 142 mmol/L (136-145); UREA NITROGEN, BLOOD 18 mg/dL (7-18)
--- NOTE | 2020-09-25 07:59 | NUR ---
MS/RN OPENING NOTES RECEIVED PATIENT ON BED AWAKE ALERT AND ORIENTED X 2-3. PATIENT IN NO APPARENT RESPIRATORY DISTRESS NOTED. NO COMPLAINED OF PAIN AT THIS TIME. WILL CONTINUE TO MONITOR.
[2020-09-25 08:00] VITALS: BP 125/71
[2020-09-25] MEDS: APIXABAN 5 MG TABLET PO SCH (09:00)
[2020-09-25] MEDS: FAMOTIDINE (20 MG) 20 MG TABLET PO SCH (09:29)
[2020-09-25] MEDS ORDERED: POTASSIUM CHLORIDE 10 MEQ TABLET.SA PO ONE (09:30)
[2020-09-25] MEDS ORDERED: Levofloxacin (250MG) PO (10:01)
[2020-09-25] MEDS ORDERED: APIX5TAB PO (10:01)
[2020-09-25] MEDS: MORPHINE SULFATE INJ 2 MG/ML DISP.SYRIN IV PRN (13:10)
--- NOTE | 2020-09-25 15:33 | NUR ---
MS/RN NOTES PATIENT IS ALERT AND ORIENTED X3. PATIENT IN NO APPARENT RESPIRATORY DISTRESS NOTED. NO COMPLAINED NOTED. SEEN AND EXAMINED BY MD WITH ORDERS MADE AND CARRIED OUT. ALL DUE MEDICATIONS WAS GIVEN. DISCHARGED INSTRUCTIONS WAS GIVEN AND PATIENT VERBALIZED UNDERSTANDING. PATIENT LEFT THE HOSPITAL IN MEDICALLY STABLE CONDITION. ARCE CATHETER WAS NO REMOVED PER PATIENT REQUEST. REPORT WAS GIVEN TO COMFORT DELUCA AT [facility]. PATIENT DIRECTOR [facility]FF[facility] BY 2 EMT AT 1530 VIA AMBULANCE.
[2020-09-30] MEDS ORDERED: APIXABAN 5 MG TABLET PO SCH (09:00)
== END 2020-09-25 15:30 | DRG 871 ==
LOC: ER 05:47 → ICU 07:56 → TELE 09-22 11:52 → MED 09-24 22:15
PROVIDERS: ADMIT Nurse Practitioner Acute Care; ATTEND Nurse Practitioner Acute Care
PROC: 02HV33Z Insertion of Infusion Device into Superior Vena Cava, Percutaneous Approach (ICD-10-PCS; principal; 2020-09-19)
DX: A41.51 Sepsis due to Escherichia coli [E. coli] (principal); G92 Toxic encephalopathy; R65.21 Severe sepsis with septic shock; E43 Unspecified severe protein-calorie malnutrition; K85.90 Acute pancreatitis without necrosis or infection, unspecified; E87.1 Hypo-osmolality and hyponatremia; N17.9 Acute kidney failure, unspecified; I82.412 Acute embolism and thrombosis of left femoral vein; E87.0 Hyperosmolality and hypernatremia; N39.0 Urinary tract infection, site not specified; E87.2 Acidosis; I82.432 Acute embolism and thrombosis of left popliteal vein; I82.442 Acute embolism and thrombosis of left tibial vein; E87.5 Hyperkalemia; D63.8 Anemia in other chronic diseases classified elsewhere; E83.39 Other disorders of phosphorus metabolism; F39 Unspecified mood [affective] disorder; G89.29 Other chronic pain; I10 Essential (primary) hypertension; E88.09 Other disorders of plasma-protein metabolism, not elsewhere classified; N13.9 Obstructive and reflux uropathy, unspecified; F03.90 Unspecified dementia, unspecified severity, without behavioral disturbance, psychotic disturbance, mood disturbance, and anxiety; Z68.28 Body mass index [BMI] 28.0-28.9, adult; Z98.890 Other specified postprocedural states; N40.1 Benign prostatic hyperplasia with lower urinary tract symptoms; R33.8 Other retention of urine
CPT/HCPCS: 36415; 36569; 71045-TC; 76705-TC; 76770-TC; 80048-TC; 80053-TC; 80061-TC; 80076-TC; 81001; 82330; 82570-TC; 82962-TC; 83605-TC; 83690-TC; 83735-TC; 83880; 83935-TC; 84100-TC; 84155-TC; 84300-TC; 84484-TC; 85025-TC; 85610-TC; 85730-TC; 87040-TC; 87081-TC; 87086-TC; 87186-TC; 93307-TC; 93971-TC; 97112-TC; 97530-TC; C1751; C9113; G0378; J0696; J1644; J1650; J1815; J2060; J2270; J2543; J3490; J7030; J7050; J7060; J7502